=== PATIENT | female | born 1995 | race Caucasian/White ===

== ENCOUNTER 2024-09-13 17:16 | Emergency (ER) | payer MEDICAID, SELFPAY ==
[2024-09-13 17:22] VITALS: BP 104/74; PULSE 88; RESP 20; TEMP 36.9; O2SAT 100; BMI 32.8
--- NOTE | 2024-09-13 17:29 | PD.EDRME ---
Rapid Medical Screening Exam RME Arrival date/time: 09/13/24 17:16 29-year-old female presents the emergency department complains of vaginal bleeding and pelvic pain patient reports being believes she is having a miscarriage Chief Complaint: Vaginal Bleeding Vital signs: Vital Signs Temperature 98.5 F 09/13/24 17:22 Pulse Rate 88 09/13/24 17:22 Respiratory Rate 20 09/13/24 17:22 Blood Pressure 104/74 09/13/24 17:22 Pulse Oximetry (%) 100 09/13/24 17:22 Oxygen Delivery Method Room Air 09/13/24 17:22
[2024-09-13 18:00] LABS: Basophils % (Auto) 1 % (0-2.5); Eosinophils # (Auto) 0.1 Thou/mm3 (0.0-0.5); Eosinophils % (Auto) 2 % (0-10); Hematocrit 37.5 % (36.0-46.0); Hemoglobin 12.5 g/dL (12.0-16.0); Immature Granulocytes % (Auto) 0 % (0-0); Immature Granulocytes Auto 0.02 Thou/mm3 (0.00-0.00); Lymphocytes % (Auto) 25 % (10-50); Mean Corpuscular HGB Conc 33.3 g/dl (31.0-37.0); Mean Corpuscular Hemoglobin 27.5 pg (25.0-35.0); Mean Corpuscular Volume 82 fL (80-100); Monocytes # (Auto) 0.4 Thou/mm3 (0.0-0.8); Monocytes % (Auto) 4 % (0-12); Neutrophils # (Auto) 5.7 Thou/mm3 (1.8-7.7); Neutrophils % (Auto) 69 % (37-80); Nucleated Red Blood Cell % 0 /100 WBC (0); Platelet Count 238 Thou/mm3 (140-440); RDW Standard Deviation 43.6 fL (36.4-46.3); Red Blood Count 4.55 Miln/mm3 (4.00-5.20); White Blood Count 8.2 Thou/mm3 (3.6-11.0)
[2024-09-13 18:22] LABS: Alanine Aminotransferase 24 U/L (10-49); Albumin, Serum 4.9 gm/dL (3.5-5.0); Alkaline Phosphatase 58 U/L (46-116); Anion Gap 8 (7-16); Aspartate Amino Transferase 13 U/L (0-34); BUN/Creatinine Ratio 13 Ratio (12-20); Bilirubin,Total < 0.2 mg/dL (0.3-1.2); Blood Urea Nitrogen 12 mg/dL (9-23); Calcium 9.4 mg/dL (8.3-10.6); Calcium (Corrected) 9.4 mg/dL (8.5-10.1); Carbon Dioxide 26.4 mMol/L (20.0-31.0); Chloride 104 mMol/L (98-107); Creatinine (Component) 0.9 mg/dL (0.6-1.3); Estimated Creatinine Clearance 108.3 mL/min (>60); Globulin 2.5 gm/dL (2.3-3.5); Glucose 99 mg/dL (74-106); Osmolality,Calculated 275 (275-295); Sodium 138 mMol/L (136-145); Total Protein 7.4 gm/dL (5.7-8.2); eGFR > 60 See Note
--- NOTE | 2024-09-13 18:28 | XR_ITS ---
Examination: OB Transvaginal ultrasound of the pelvis, complete Technique: Transvaginal sonographic images pelvis performed using vuong scale imaging Exam date and time: September 13, 2024 1830 hrs. Indications: Onset vaginal bleeding today Findings: Uterus 8.5 x 5.5 x 6.2 cm retroverted Intrauterine gestational sac 1.7 cm correspondences 6 weeks 4 days gestational age No pole No cardiac activity Right ovary 2.5 x 2.1 x 2.0 cm arterial flow Left ovary obscured by bowel gas Impression: Intrauterine gestational sac corresponding to 6 weeks 4 days gestational age No pole, no cardiac activity Recommend short-term follow-up transvaginal pelvic sonography to exclude embryonic demise.
[2024-09-13 19:00] LABS: Beta HCG,Quantitative 15426 mIU/mL (<5.0)
--- NOTE | 2024-09-13 19:35 | EDNOTE_ITS ---
ED General RME/HPI General Chief complaint: Vaginal Bleeding Stated complaint: 8 weeks OB, , vaginal bleeding Time Seen by Provider: 09/13/24 19:25 Arrival date/time: 09/13/24 17:16 CC vaginal bleeding HPI ongoing for the past 2 days. The patient is a G4, P2 at estimated 8 weeks. Patient denies fever chills nausea vomiting back pain shortness of breath difficulty breathing. RME / HPI RME / HPI narrative: 09/13/24 17:16 29-year-old female presents the emergency department complains of vaginal bleeding and pelvic pain patient reports being believes she is having a miscarriage Related Data Previous Rx's ?Medication ?Instructions ?Recorded ibuprofen 600 mg tablet 600 mg PO Q6HR PRN PAIN #30 tabs 11/26/15 Allergies Allergy/AdvReac Type Severity Reaction Status Date / Time No Known Allergies Allergy Verified 03/09/22 15:40 Review of Systems Review of Systems Narrative Review of Systems: GEN: No fever, no chills, no weight loss EYES: No discharge, no visual changes, no pain HEENT: No ear pain, no congestion, no sore throat PULM: No shortness of breath, no cough, no congestion CV: No chest pain, no dyspnea on exertion, no palpitations GI: No nausea, no vomiting, no diarrhea, no pain, no constipation : No frequency, no urgency, no dysuria MUSC/SKEL: No joint pain, no back pain SKIN: No rash PSYCH: No hallucinations, no depression HEME/LYMPH: No easy bleeding or bruising tendencies NEURO: No weakness, no headache Past Medical History Past Medical History CARDIAC: Negative Congestive Heart Failure RESPIRATORY: Negative Chronic Obstructive Pulmonary Disease (COPD) GENITOURINARY: Negative Renal Disease ENDOCRINE: Negative Diabetes Mellitus Type 1 or Diabetes Mellitus Type 2 Social History SMOKING STATUS: Former smoker ED Exam Narrative Physical exam: [General: Obese not in any acute distress Head normocephalic HEENT: Within acceptable limits Neck is supple nontender Chest equal chest rise nontender to palpation Respiratory: Clear to auscultation no wheezes crackles or rubs CV: Rate rhythm is regular no murmurs rubs or clicks Abdomen is distended secondary to body habitus soft nontender no masses positive bowel sounds all 4 quadrants Back: No CVA tenderness no spinous process tenderness from cervical spine thoracic and lumbar spine Skin: Intact no petechiae rash induration ulceration or crepitus Extremities: Moving all extremity against resistance cap refill less than 2 seconds neurosensory intact Neuro: Awake alert oriented x3 Glascow coma 15 no focal deficits] Course Quality Measures none Orders Category Date Time Status US OB transvaginal Stat Exams 09/13/24 18:28 Completed ABO/RH Type Stat Lab 09/13/24 17:43 Completed Beta HCG,Quantitative Stat Lab 09/13/24 17:43 Completed CBC Stat Lab 09/13/24 17:43 Completed Comprehensive Metabolic Panel Stat Lab 09/13/24 17:43 Completed Vital Signs Vital signs: Vital Signs Temperature 98.5 F 09/13/24 17:22 Pulse Rate 88 09/13/24 17:22 Respiratory Rate 20 09/13/24 17:22 Blood Pressure 104/74 09/13/24 17:22 Pulse Oximetry (%) 100 09/13/24 17:22 Oxygen Delivery Method Room Air 09/13/24 17:22 [facility] Patient data External records reviewed:: [facility] previous records Clinical information provided by:: patient Social determinants that could affect healthcare access:: none Patient has the following chronic illnesses:: None How is presenting disease/condition affected by chronic disease/condition?: u neffected by Evaluation data The following diagnostics were reviewed and interpreted by me:: lab results and radiology exam(s) Lab and/or radiology exams considered but not ordered:: CBC shows no acute leukocytosis anemia thrombocytopenia CMP shows no acute electrolyte imbalance renal impairment transaminitis or T. bili elevation Urine is negative other than RBC is Ultrasound shows a of 6 weeks and 3 days with no heart tones. Interpretation Summary: Threatened miscarriage Medications Medications considered but not ordered:: None Medication administrations:: None Consultations Consultation(s) initiated? (list below): No Diagnosis Differential Diagnosis ED Complaint MDM: First trimester vaginal bleeding threatened miscarriage ectopic Most likely diagnosis given after review of the tests above:: Threatened miscarriage Admission Indicated Admission indicated?: not indicated Explain why admission is indicated or not indicated:: Stable for discharge Admission Request Was there a request for admission?: No Disposition Plan Disposition Plan: Discharge Discharge Attestation Discharge Attestation: The patient and all family members were given an opportunity to ask questions and understood the discharge instructions. Discharge instructions specifically effects, indications for sooner follow up or return to the emergency department, and the expected course of current diagnosis. Patient condition: Stable Medical Decision Making Differential Diagnosis Differential Diagnosis: First trimester vaginal bleeding threatened miscarriage ectopic Lab Data 09/13/24 17:43 09/13/24 17:43 Labs: Lab Results 09/13/24 Range/Units 17:43 WBC 8.2 (3.6-11.0) Thou/mm3 RBC 4.55 (4.00-5.20) Miln/mm3 Hgb 12.5 (12.0-16.0) g/dL Hct 37.5 (36.0-46.0) % MCV 82 (80-100) fL MCH 27.5 (25.0-35.0) pg MCHC 33.3 (31.0-37.0) g/dl RDW Std Deviation 43.6 (36.4-46.3) fL Plt Count 238 (140-440) Thou/mm3 Neut % (Auto) 69 (37-80) % Lymph % (Auto) 25 (10-50) % [place] % (Auto) 4 (0-12) % Eos % (Auto) 2 (0-10) % Baso % (Auto) 1 (0-2.5) % Neut # (Auto) 5.7 (1.8-7.7) Thou/mm3 Lymph # (Auto) 2.0 (1.0-4.8) Thou/mm3 [place] # (Auto) 0.4 (0.0-0.8) Thou/mm3 Eos # (Auto) 0.1 (0.0-0.5) Thou/mm3 Baso # (Auto) 0.0 (0.0-0.2) Thou/mm3 Immature Gran # (Auto) 0.02 H (0.00-0.00) Thou/mm3 Absolute Nucleated RBC 0.00 (0.00-0.00) Thou/mm3 Immature Gran % 0 (0-0) % Nucleated RBC % 0 (0) /100 WBC Sodium 138 (136-145) mMol/L Potassium 4.0 (3.4-5.1) mMol/L Chloride 104 (98-107) mMol/L Carbon Dioxide 26.4 (20.0-31.0) mMol/L Anion Gap 8 (7-16) BUN 12 (9-23) mg/dL Creatinine 0.9 (0.6-1.3) mg/dL Estim Creat Clear Calc 108.3 (>60) mL/min eGFR > 60 (60 - ) See Note BUN/Creatinine Ratio 13 (12-20) Ratio Glucose 99 (74-106) mg/dL Calculated Osmolality 275 (275-295) Calcium 9.4 (8.3-10.6) mg/dL Corrected Calcium 9.4 (8.5-10.1) mg/dL Total Bilirubin < 0.2 L (0.3-1.2) mg/dL AST 13 (0-34) U/L ALT 24 (10-49) U/L Alkaline Phosphatase 58 (46-116) U/L Total Protein 7.4 (5.7-8.2) gm/dL Albumin 4.9 (3.5-5.0) gm/dL Globulin 2.5 (2.3-3.5) gm/dL Albumin/Globulin Ratio 2.0 (1.2-2.2) Beta HCG, Quant 85800 (<5.0) mIU/mL Blood Type B Positive Blood Bank Wristband ID Yes Discharge Plan Plan Patient Disposition: HOME (Self Care) Patient condition on transfer: Stable Prescriptions/Referrals Prescriptions/Med Rec: No Action ibuprofen 600 MG tablet 600 mg PO Q6HR PRN (Reason: PAIN) Qty: 30 0RF Referrals: No Primary/Family,Physician [Primary Care Provider] - In 1 week Dennis Sanchez MD [Physician] - In 1 week Problem List Clinical Impression: Miscarriage, threatened, early Patient/Caregiver Discharge Instructions Education Materials: ED Possible Miscarriage ... Print Language: Comoran Stand Alone Forms: Jazmyne Award Info., Patient Portal Info Letter, Work/School Release PA/ELECTRIC LOCOMOTIVE CRANE OPERATOR Supervising Physician PA/ELECTRIC LOCOMOTIVE CRANE OPERATOR Supervising Physician: Brad Wiley ENP
== END 2024-09-13 19:52 | disposition home or self-care (01) ==
PROVIDERS: Nurse Practitioner Primary Care; Emergency Provider Emergency Medicine; Referring Provider Emergency Medicine
DX: O20.0 Threatened abortion (principal); Z3A.01 Less than 8 weeks gestation of pregnancy
CPT/HCPCS: 36415; 76817; 80053; 84702; 85025; 86900; 86901; 99284

== ENCOUNTER 2024-09-15 22:08 | Day surgery (SDC) | payer MEDICAID, SELFPAY ==
[2024-09-15 22:09] VITALS: BMI 32.8
[2024-09-15 22:32] VITALS: BP 110/86; PULSE 101; RESP 19; TEMP 36.8; O2SAT 100
[2024-09-15 22:41] VITALS: BP 111/78; PULSE 107; RESP 23; O2SAT 100
[2024-09-15 23:00] LABS: Basophils % (Auto) 0 % (0-2.5); Eosinophils # (Auto) 0.2 Thou/mm3 (0.0-0.5); Eosinophils % (Auto) 1 % (0-10); Hematocrit 33.8 % (36.0-46.0); Hemoglobin 11.3 g/dL (12.0-16.0); Immature Granulocytes % (Auto) 0 % (0-0); Immature Granulocytes Auto 0.03 Thou/mm3 (0.00-0.00); Lymphocytes # (Auto) 2.5 Thou/mm3 (1.0-4.8); Lymphocytes % (Auto) 22 % (10-50); Mean Corpuscular HGB Conc 33.4 g/dl (31.0-37.0); Mean Corpuscular Hemoglobin 27.2 pg (25.0-35.0); Mean Corpuscular Volume 81 fL (80-100); Monocytes # (Auto) 0.6 Thou/mm3 (0.0-0.8); Monocytes % (Auto) 5 % (0-12); Neutrophils # (Auto) 7.8 Thou/mm3 (1.8-7.7); Neutrophils % (Auto) 71 % (37-80); Nucleated Red Blood Cell % 0 /100 WBC (0); Platelet Count 244 Thou/mm3 (140-440); RDW Standard Deviation 42.7 fL (36.4-46.3); Red Blood Count 4.16 Miln/mm3 (4.00-5.20); White Blood Count 11.1 Thou/mm3 (3.6-11.0)
[2024-09-15 23:01] VITALS: BP 84/71; PULSE 95; RESP 16; O2SAT 100
--- NOTE | 2024-09-15 23:02 | EDNOTE_ITS ---
ED OB Contraction Preg RMI/HPI General Chief complaint: Vaginal Bleeding Stated complaint: vaginal bleeding Time Seen by Provider: 09/15/24 23:01 Arrival date/time: 09/15/24 22:08 Mode of arrival: ambulatory Limitations: no limitations RME / HPI RME / HPI Narrative: Dr. Trujillo's Main ED Evaluation: 29-year-old female G4 with 1 living , reported last menstrual period approximately unknown, however the patient was seen in the emergency department on September 13 and was told that she had a 6-week IUP, presenting to the emergency department with vaginal bleeding. The patient states that she has been spotting since September 13 and it is gotten increasing today at 4 PM requiring her to change her pads 2-3 times. She changed her pads since arriving to the emergency department 4-5 times. Currently has some abdominal cramping and think she is miscarrying No back pain No fever No vomiting No dizziness or syncope No urinary symptoms Related Data Previous Rx's ?Medication ?Instructions ?Recorded ibuprofen 600 mg tablet 600 mg PO Q6HR PRN PAIN #30 tabs 11/25/ hydrocodone 5 mg-acetaminophen 325 1 tab PO Q6H PRN pain #14 tabs 09/16/ mg tablet Allergies Allergy/AdvReac Type Severity Reaction Status Date / Time No Known Allergies Allergy Verified 03/09/22 15:40 Review of Systems Review of Systems Systems Reviewed: All systems reviewed, normal except as documented Past Medical History Past Medical History CARDIAC: Negative Congestive Heart Failure RESPIRATORY: Negative Chronic Obstructive Pulmonary Disease (COPD) GENITOURINARY: Negative Renal Disease ENDOCRINE: Negative Diabetes Mellitus Type 1 or Diabetes Mellitus Type 2 Social History SMOKING STATUS: Current some day smoker ED Exam Narrative Physical exam: Pelvic exam: Filament Tester present. There is lots of blood in the vaginal vault, it is pooling. No CMP. Os is open. General Limitations: Present no limitations General appearance: Present alert, in no apparent distress and other (awake, talking in full sentences) Head Head exam: Present atraumatic Eye Eye exam: Present normal appearance, PERRL and EOMI ENT ENT exam: Present normal exam, normal oropharynx and mucous membranes moist Neck Neck exam: Present normal inspection, full ROM and trachea midline Chest Chest inspection: Present normal inspection and symmetric chest wall rise Respiratory Respiratory exam: Present normal lung sounds bilaterally Cardiovascular Cardiovascular exam: Present normal rhythm, tachycardia and normal heart sounds Abdominal Exam Abdominal exam: Present soft and normal bowel sounds Extremities Exam Extremities exam: Present normal inspection and full ROM Back Exam Back exam: Present normal inspection and full ROM Neurological Exam Neurological exam: Present alert, oriented X3 and CN II-XII intact Psychiatric Psychiatric exam: Present normal affect and normal mood Skin Skin exam: Present warm, dry, intact and normal color; Absent pallor Course Quality Measures none Orders Category Date Time Status Admit to Inpatient Status Routine Admission 09/16/24 05:01 Active Patient Condition Routine Admission 09/16/24 Ordered COVID-19 Screening Questionnaire NOW Care 09/16/24 05:01 Active COVID-19 Screening Questionnaire NOW Care 09/16/24 05:02 Active Consent [Obtain Written Consent For:] .NOW Care 09/16/24 05:02 Active DC Home When Criteria Met . Care 09/16/24 06:18 Active Decision to Admit X1 Care 09/16/24 04:59 Active Decision to Admit X1 Care 09/16/24 05:02 Active Pelvic Exam X1 Care 09/15/24 23:02 Active Discharge Routine Discharge 09/16/24 06:41 Active US OB <= 14 weeks fetus Stat Exams 09/16/24 00:00 Taken Beta HCG,Quantitative Stat Lab 09/15/24 22:35 Completed CBC Stat Lab 09/15/24 22:35 Completed CBC Stat Lab 09/16/24 02:48 Completed Comprehensive Metabolic Panel Stat Lab 09/15/24 22:35 Completed PT [Prothrombin Time with INR] Stat Lab 09/16/24 02:48 Completed Red Blood Cells Stat Lab 09/16/24 04:46 Completed Type and Screen Stat Lab 09/15/24 22:35 Completed Acetaminophen Ivpb [Ofirmev Inj] Med 09/16/24 06:19 Active 1,000 mg in 100 ml IV Q6HR Dexamethasone Inj [Decadron Inj] Med 09/16/24 06:17 Discontinued 10 mg .ROUTE .STK-MED ONE Ketorolac Inj [Toradol Inj] Med 09/16/24 06:17 Discontinued 30 mg .ROUTE .STK-MED ONE Methylergonovine Inj [Methergine Inj] Med 09/16/24 06:27 Discontinued 0.2 mg .ROUTE .STK-MED ONE Midazolam Inj [Versed Inj] Med 09/16/24 06:04 Discontinued 2 mg .ROUTE .STK-MED ONE Morphine Inj Med 09/16/24 06:18 Active 3 mg IV Q5M PRN Ondansetron Inj [Zofran Inj] Med 09/16/24 06:17 Discontinued 4 mg .ROUTE .STK-MED ONE Ondansetron Inj [Zofran Inj] Med 09/15/24 23:07 Discontinued 4 mg IV X1 ONE Ondansetron Inj [Zofran Inj] Med 09/15/24 23:28 Discontinued 4 mg IV X1 ONE Ondansetron Inj [Zofran Inj] Med 09/16/24 06:18 Discontinued 4 mg IV X1 ONE Propofol Inj [Diprivan Inj] Med 09/16/24 06:03 Discontinued 200 mg IV .STK-MED ONE Sodium Chloride 0.9% 1000 ml [Ns] 1,000 ml Med 09/15/24 23:01 Discontinued IV 999 mls/hr Sodium Chloride 0.9% 1000 ml [Ns] 1,000 ml Med 09/16/24 02:01 Discontinued IV 999 mls/hr Tranexamic Acid 1,000 mg Ivpb [Tranexamic Acid Ivpb] Med 09/16/24 06:27 Discontinued 1,000 mg in 100 ml IV .STK-MED ceFAZolin [Ancef] Med 09/16/24 06:17 Discontinued 2 gm .ROUTE .STK-MED ONE fentaNYL INJ [Sublimaze Inj] Med 09/16/24 06:04 Discontinued 100 mcg .ROUTE .STK-MED ONE fentaNYL INJ [Sublimaze Inj] Med 09/16/24 06:18 Active 25 mcg IV Q5M PRN Code Status Routine Oth 09/16/24 05:02 Ordered Oxygen Delivery PRN RT 09/16/24 06:18 Active Vital Signs Vital signs: Vital Signs Temperature 98.2 F 09/15/24 22:32 Pulse Rate 101 H 09/15/24 22:32 Respiratory Rate 19 09/15/24 22:32 Blood Pressure 110/86 H 09/15/24 22:32 Pulse Oximetry (%) 100 09/15/24 22:32 Oxygen Delivery Method Room Air 09/15/24 22:32 Vaginal Bleeding MDM Narrative MDM Narrative: Differential diagnosis includes UTI, miscarriage, irregular vaginal bleeding, ectopic , anemia At this time the patient is hemodynamically stable with a heart rate of 101. Will order ultrasound, labs to include ABO, type and screen and CBC are ordered and pending. 0202: Patient's HR went up to 120 and felt dizzy when she stood up. BP is 84 sys tolic. Patient has orthostatic hypotension. Additional fluids added. 0450: Discussed results with the patient. States she will likely need a D&C. Will consult with OBGYN. Patient data External records reviewed:: [facility] previous records (Per chart review, patient was seen here on 09/13/24 for an early threatened miscarriage; Reviewed US from 09/13/24.) Clinical information provided by:: patient Social determinants that could affect healthcare access:: none Patient has the following chronic illnesses:: none How is presenting disease/condition affected by chronic disease/condition?: no chronic disease Evaluation data The following diagnostics were reviewed and interpreted by me:: lab results and radiology exam(s) Lab and/or radiology exams considered but not ordered:: none Interpretation Summary: WBC count is slightly elevated at 11.1, Initial HnH is 11.3/33.8, CMP is chandan l, HCG is 9022 (lower compared to 09/13/24 when it was 29143), PT and INR are normal, according to my interpretation. Repeat HnH dropped and is now 8.1/24.7. Blood transfusion ordered. Telerad Preliminary Report Draft Patient: VIJAYA GARNER [facility]. Record#: [id number] Birthdate: 1995 Age/Sex: 29 / F Location: [facility] Attending Dr: Ordering Physician: Date of Service: Procedure(s): Accession Number(s): cc: ~ Pelvic ultrasound (transabdominal) with Doppler. September 16, 2024 at 0016 hours Clinical history: Approximately 6 to 8 weeks, possible IUP with vag. LMP 07/01/2024.HCG 9022. Findings: The uterus is normal in size measuring 10.4 x 4.6 x 6.2 cm. A small amount of fluid is seen in the cervix. The endometrium is thickened and measures 0.3 cm. No intrauterine gestational sac is seen at this time. The right ovary measures 3.5 x 3.1 x 3.1 cm. The left ovary measures 2.8 x 2 x 2.5 cm. Both ovaries demonstrate color flow and spectral waveforms on Doppler evaluation. No adnexal mass is demonstrated. There is no free fluid. Impression: No evidence of intrauterine gestation at this time. Possibilities include very early intrauterine , recent or occult ectopic gestation. Recommend correlation with serum beta hCG and follow up. Report Electronically Signed By: Tan Tellez 09/16/2024 1:56:44 AM [EST] Medications / Prescriptions Medications or Prescriptions considered but not ordered:: none Medication administrations:: Medication Administration History Fentanyl Citrate (Fentanyl Cit Inj 50 Mcg/Ml Amp 2ml) 25 mcg IV Q5M PRN PRN Reason: PAIN SCALE 1-3 (mild Stop: 09/16/24 08:18 Acetaminophen (Ofirmev Inj) 1,000 mg in 100 mls @ 250 mls/hr IV Q6HR NILO Stop: 09/17/24 00:23 Morphine Sulfate (Morphine Sulf Inj 10 Mg/Ml Vial) 3 mg IV Q5M PRN PRN Reason: PAIN SCALE 4-6 (Moderate Stop: 09/16/24 08:18 Discontinued Medications Cefazolin Sodium (Cefazolin Inj 1 Gm Vial) Confirm Administered Dose 2 gm .ROUTE .STK-MED ONE Stop: 09/16/24 06:18 Dexamethasone Sodium Phosphate (Dexamethasone Sod Phos Inj 10 Mg/Ml Vial) Confirm Administered Dose 10 mg .ROUTE .STK-MED ONE Stop: 09/16/24 06:18 Fentanyl Citrate (Fentanyl Cit Inj 50 Mcg/Ml Amp 2ml) Confirm Administered Dose 100 mcg .ROUTE .STK-MED ONE Stop: 09/16/24 06:05 Sodium Chloride (Ns) 1,000 mls @ 999 mls/hr IV .Q1H1M ONE Stop: 09/16/24 00:01 Last Infusion: 09/16/24 00:03 Dose: Infused Documented By: Admin: 09/15/24 23:17 Dose: 999 mls/hr Documented By: WENDY Sodium Chloride (Ns) 1,000 mls @ 999 mls/hr IV .Q1H1M ONE Stop: 09/16/24 03:01 Last Infusion: 09/16/24 03:04 Dose: Infused Documented By: Admin: 09/16/24 02:10 Dose: 999 mls/hr Documented By: WENDY Tranexamic Acid (Tranexamic Acid Ivpb) Confirm Administered Dose 1,000 mg in 100 mls @ ud IV .STK-MED ONE Stop: 09/16/24 06:28 Ketorolac Tromethamine (Ketorolac Inj 30 Mg/Ml Vial) Confirm Administered Dose 30 mg .ROUTE .STK-MED ONE Stop: 09/16/24 06:18 Methylergonovine Maleate (Methylergonovine Inj 0.2 Mg/Ml Vial) Confirm Administered Dose 0.2 mg .ROUTE .STK-MED ONE Stop: 09/16/24 06:28 Midazolam HCl (Midazolam Inj 1 Mg/Ml Vial 2 Ml) Confirm Administered Dose 2 mg .ROUTE .STK-MED ONE Stop: 09/16/24 06:05 Ondansetron HCl (Ondansetron Inj 2 Mg/Ml Inj 2 Ml) 4 mg IV X1 ONE; Protocol Stop: 09/15/24 23:08 Last Admin: 09/15/24 23:33 Dose: Not Given Documented By: WENDY Non-Admin Reason: Other, see note Ondansetron HCl (Ondansetron Inj 2 Mg/Ml Inj 2 Ml) 4 mg IV X1 ONE; Protocol Stop: 09/15/24 23:29 Last Admin: 09/15/24 23:32 Dose: 4 mg Documented By: WENDY Ondansetron HCl (Ondansetron Inj 2 Mg/Ml Inj 2 Ml) 4 mg IV X1 ONE Stop: 09/16/24 06:19 Ondansetron HCl (Ondansetron Inj 2 Mg/Ml Inj 2 Ml) Confirm Administered Dose 4 mg .ROUTE .STK-MED ONE Stop: 09/16/24 06:18 Propofol (Propofol Inj 10 Mg/Ml Vial 20 Ml) Confirm Administered Dose 200 mg IV .STK-MED ONE Stop: 09/16/24 06:04 see above Consultations Consultation(s) initiated? (list below): Yes Consultation #1 (Physician, Specialty, Details): Discussed case with [Dr. Leonard] from [CHARGING CRANE OPERATOR] regarding [consultation]. Discussed patients ED course, exam findings, labs, and radiology results. States he will take the patient to the OR for D&C. Requests to give 2U of blood and prepare the OR. Time: 04:55 Diagnosis Vaginal Bleeding Differential Diagnosis: other (UTI, miscarriage, irregular vaginal bleeding, ectopic , anemia) Most likely diagnosis given after review of the tests above:: see below Admission Indicated Admission indicated?: indicated Admission Request Was there a request for admission?: Yes Admission Attestation Admission request attestation: Discussed case with from OB service regarding admission. Discussed patients ED course, exam findings, labs, and radiology results. The OB [agrees to accept the patient for admission. Disposition Plan Disposition Plan: Admit Critical Care Time Critical Care Time Critical Care Time: Yes Total Critical Care Time (min.): 50 Attestation: The high probability of sudden, clinically significant deterioration in the patient?s condition required the highest level of my preparedness to intervene urgently. The services I provided to this patient were to treat and/or prevent clinically significant deterioration. Services included the following: chart data review, reviewing nursing notes and/or old charts, documentation time, business analyst consultant collaboration regarding findings and treatment options, medication orders and management, direct patient care, vital sign assessments and ordering, interpreting and reviewing diagnostic studies and lab tests. Aggregate critical care time includes only time during which I was engaged in work directly related to the patient?s care, as described above, whether at bedside or elsewhere in the Emergency Department. It did not include time spent performing other reported procedures or the services of residents, students, nurses or physician assistants. Discharge Plan Plan Patient Disposition: Other Care w/in Hosp ([facility]) Patient condition on transfer: Stable and Benefits outweigh risks Problem List Clinical Impression: Vaginal bleeding, Acute hypotension, Anemia, Incomplete miscarriage Patient/Caregiver Discharge Instructions Discharge Activity: activity as tolerated Other Activity Instructions:: Follow up office 1 week with Primary CHARGING CRANE OPERATOR or Dr. Leonard's office.
[2024-09-15] MEDS: SODIUM CHLORIDE 0.9% 1000 ML 1,000 ML 999 ML IV (23:17)
[2024-09-15 23:18] LABS: Alanine Aminotransferase 24 U/L (10-49); Albumin, Serum 4.3 gm/dL (3.5-5.0); Albumin/Globulin Ratio 1.9 (1.2-2.2); Alkaline Phosphatase 57 U/L (46-116); Anion Gap 8 (7-16); Aspartate Amino Transferase 18 U/L (0-34); BUN/Creatinine Ratio 20 Ratio (12-20); Bilirubin,Total < 0.2 mg/dL (0.3-1.2); Blood Urea Nitrogen 14 mg/dL (9-23); Calcium 9.1 mg/dL (8.3-10.6); Calcium (Corrected) 9.1 mg/dL (8.5-10.1); Carbon Dioxide 22.4 mMol/L (20.0-31.0); Chloride 108 mMol/L (98-107); Creatinine (Component) 0.7 mg/dL (0.6-1.3); Estimated Creatinine Clearance 139.3 mL/min (>60); Globulin 2.3 gm/dL (2.3-3.5); Glucose 113 mg/dL (74-106); Osmolality,Calculated 277 (275-295); Potassium 3.7 mMol/L (3.4-5.1); Sodium 138 mMol/L (136-145); Total Protein 6.6 gm/dL (5.7-8.2); eGFR > 60 See Note
[2024-09-15 23:30] VITALS: BP 83/59; PULSE 91; RESP 14; O2SAT 100
[2024-09-15 23:32] VITALS: BP 84/71; PULSE 90; RESP 15; TEMP 36.8; O2SAT 100
[2024-09-15] MEDS: ONDANSETRON INJ 2 MG/ML INJ 2 ML 4 MG IV (23:32)
[2024-09-15 23:40] LABS: Beta HCG,Quantitative 9022 mIU/mL (<5.0)
[2024-09-16] VITALS (22 sets, daily range): BP systolic 68–111; BP diastolic 44–72; PULSE 70–124; RESP 8–24; TEMP 36.3–36.9; O2SAT 95–100
--- NOTE | 2024-09-16 | XR_ITS ---
Examination: Complete OB ultrasound, less than 14 weeks, transabdominal Date and time of exam: September 16, 2024 0016 hours INDICATIONS: Vaginal bleeding beginning 2 days ago Technique: Obstetrical ultrasound images less than 14 weeks performed via transabdominal imaging Findings: Uterus 10.4 x 4.6 x 6.2 cm No intrauterine gestation Mild fluid in cervix Endometrial stripe 0.3 cm Right ovary 3.5 x 3.1 x 3.1 cm arterial flow Left ovary 2.8 x 2.0 x 2.5 cm arterial flow No fluid in the cul-de-sac IMPRESSION: No uterine mass or intrauterine gestation Negative for ovarian torsion
--- NOTE | 2024-09-16 01:57 | PRELIM_ITS ---
Pelvic ultrasound (transabdominal) with Doppler. September 16, 2024 at 0016 hours Clinical history: Anthony roximately 6 to 8 weeks, possible IUP with vag. LMP 07/01/2024.HCG 9022. Findings:The uterus is chandan l in size measuring 10.4 x 4.6 x 6.2 cm. A small amount of fluid is seen in the cervix. The endometri um is thickened and measures 0.3 cm. No intrauterine gestational sac is seen at this time. The right ovary measures 3.5 x 3.1 x 3.1 cm. The left ovary measures 2.8 x 2 x 2.5 cm. Both ovaries demonstrate color flow and spectral waveforms on Doppler evaluation. No adnexal mass is demonstrated.There is no free fluid.Impression:No evidence of intrauterine gestation at this time. Possibilities include very early intrauterine , recent or occult ectopic gestation. Recommend correlation wit h serum beta hCG and follow up. Report Electronically Signed By: Tan Tellez 09/16/2024 1:56:44 AM [ EST]
[2024-09-16] MEDS: SODIUM CHLORIDE 0.9% 1000 ML 1,000 ML 999 ML IV (02:10)
[2024-09-16 03:05] LABS: Basophils % (Auto) 0 % (0-2.5); Eosinophils # (Auto) 0.1 Thou/mm3 (0.0-0.5); Eosinophils % (Auto) 1 % (0-10); Hematocrit 24.7 % (36.0-46.0); Immature Granulocytes % (Auto) 0 % (0-0); Immature Granulocytes Auto 0.03 Thou/mm3 (0.00-0.00); Lymphocytes # (Auto) 2.2 Thou/mm3 (1.0-4.8); Lymphocytes % (Auto) 28 % (10-50); Mean Corpuscular HGB Conc 32.8 g/dl (31.0-37.0); Mean Corpuscular Hemoglobin 27.2 pg (25.0-35.0); Mean Corpuscular Volume 83 fL (80-100); Monocytes # (Auto) 0.4 Thou/mm3 (0.0-0.8); Monocytes % (Auto) 5 % (0-12); Neutrophils # (Auto) 5.2 Thou/mm3 (1.8-7.7); Neutrophils % (Auto) 65 % (37-80); Nucleated Red Blood Cell % 0 /100 WBC (0); Platelet Count 177 Thou/mm3 (140-440); RDW Standard Deviation 43.9 fL (36.4-46.3); Red Blood Count 2.98 Miln/mm3 (4.00-5.20)
[2024-09-16 03:06] LABS: Hemoglobin 8.1 g/dL (12.0-16.0)
[2024-09-16 03:14] LABS: INR 1.1 (0.9-1.3); Prothrombin Time 11.9 Seconds (9.0-12.2)
--- NOTE | 2024-09-16 05:42 | ESHP_ITS ---
Documentation for date of: 09/16/24 [employer] - HPI History of Present Illness History of present illness: Ms. GARNER is a 29 year old female who presented to the emergency room complaining of heavy vaginal bleeding. Her hemoglobin went from 11.3-8.1 during her observation in the emergency room. She had a pelvic ultrasound on September 13 showing an intrauterine at 6 weeks and 4 days with no cardiac activity. Her current ultrasound shows no intrauterine gestational sac. Her quantitative beta-hCG went from 15,426 on September 13 down to 9022 current lab. Review of Systems Review of Systems Narrative Review of Systems: Denies any chest pain palpitations cough fever shortness of breath or lower extremity pain Allergic/Immunologic Comments: No known drug allergies Past Medical History Past Medical History GENITOURINARY: Positive Genitourinary Disorders Surgical History OTHER SURGICAL HX: D&C for miscarriage 2021 Meds Home Medications and Allergies Allergies Allergy/AdvReac Type Severity Reaction Status Date / Time No Known Allergies Allergy Verified 03/09/22 15:40 Exam - [employer] Vital Signs Temp Pulse Resp BP Pulse Ox O2 Del Method 98.1 F 74 17 89/61 L 100 Room Air 09/16/24 05:37 09/16/24 05:37 09/16/24 05:37 09/16/24 05:37 09/16/24 05:37 09/16/24 03:46 Routine HEENT Exam Comments: Oropharynx and sclerae are clear Routine Respiratory Exam Comments: Clear to auscultation bilaterally Routine Cardiovascular Exam Comments: Regular rate and rhythm Routine Abdominal Exam Comments: Nontender nondistended no guarding rebound or rigidity , soft. Additional findings Additional findings: Currently undergoing rapid blood transfusion of 2 units of packed red blood cells [employer] - Results Labs 09/16/24 02:48 09/15/24 22:35 Labs: Short CBC 09/15/24 09/16/24 Range/Units 22:35 02:48 WBC 11.1 H 8.0 (3.6-11.0) Thou/mm3 Hgb 11.3 L 8.1 L D (12.0-16.0) g/dL Hct 33.8 L 24.7 L (36.0-46.0) % Plt Count 244 177 D (140-440) Thou/mm3 BMP 09/15/24 22:35 Sodium 138 Potassium 3.7 Chloride 108 H Carbon Dioxide 22.4 BUN 14 Creatinine 0.7 Glucose 113 H Calcium 9.1 Liver Function 09/15/24 Range/Units 22:35 Total Bilirubin < 0.2 L (0.3-1.2) mg/dL AST 18 (0-34) U/L ALT 24 (10-49) U/L Alkaline Phosphatase 57 (46-116) U/L Albumin 4.3 D (3.5-5.0) gm/dL Impressions Impression: Incomplete at 6 weeks gestation Assessment and Plan Assessment and plan (1) Incomplete miscarriage: Status: Acute Additional Assessment & Plan Additional Plan: Suction dilatation curettage Informed consent was obtained. The patient was made aware of the risk complications alternatives and benefits of the proposed procedure and she agrees. Quality Measures Quality Measures none
--- NOTE | 2024-09-16 05:54 | PC.NURSE ---
REPORT GIVEN TO AVERY CHAPA. ALL QUESTIONS ASKED AND ANSWERED. PATIENT TRANSFERRED TO SURGERY WITH OR STAFF, FAMILY WITH PATIENT. PATIENT REMAINS ON ROOM AIR.
--- NOTE | 2024-09-16 06:35 | SUR.PHASEI ---
0635: [facility] received report from Dr. Espinoza and Deepak RN. oral airway in place. no s/s of pain or discomfort. no s/s or resp. distress or discomfort. no vaginal noted from chelsey-pad.
--- NOTE | 2024-09-16 06:45 | SUR.PHASEI ---
0645: pt able to open eyes and mouth, oral airway was out at this time.
--- NOTE | 2024-09-16 06:55 | SUR.PHASEI ---
0655: pt drink water at this time. tolerated well.
--- NOTE | 2024-09-16 07:05 | SUR.PHASEI ---
0705: pt alert and oriented x3. no s/s of pain or discomfort. no s/s or resp. distress or discomfort. scant amount of vaginal bleeding noted from chelsey-pad.
--- NOTE | 2024-09-16 07:05 | SUR.PHASEII ---
0705: report given to AVERY Bingham.
--- NOTE | 2024-09-16 07:20 | SUR.PHASEII ---
Pt. AAOx3, tolerating sips of water, assessed for vaginal bleeding, small amount of bright red blood on chelsey-pad, no c/o pain or nausea at this time.
--- NOTE | 2024-09-16 07:40 | SUR.PHASEII ---
Pt. meets criteria for discharge, VSS, AAOx3, no c/o pain or nausea at this time, no active bleeding noted, IV discontinued without complications, discharge instructions provided to pt. and pt.'s mother, verbalized understanding. Pt. escorted to vehicle with all of belongings via w/c by staff.
--- NOTE | 2024-09-16 07:44 | ESOP_ITS ---
RE: VIJAYA GARNER : 1995 DATE OF OPERATION: 09/16/2024 PREOPERATIVE DIAGNOSIS: Incomplete at 6 weeks gestation. POSTOPERATIVE DIAGNOSIS: Incomplete at 6 weeks gestation. PROCEDURE PERFORMED: Suction dilatation and curettage. SURGEON: Sixto Leonard DO [employer] WORKER: None. ANESTHESIA: General. ANESTHESIOLOGIST: Dr. Espinoza. ESTIMATED BLOOD LOSS: 25 mL PATHOLOGY: Products of conception. FINDINGS: Moderate amount of products of conception in the endocervical os and small amount in the uterine cavity. Cervix was 1.5 cm dilated. Uterus was 8 weeks' size. DESCRIPTION OF PROCEDURE: After appropriate informed consent was obtained, the patient was made aware of the risks, complications, alternatives, and benefits of the proposed procedure she was taken to the operating room where she underwent induction of general anesthesia. She was placed in the dorsal lithotomy position. She was prepped and draped in the usual sterile fashion. A timeout was performed. The patient underwent an exam under anesthesia, which revealed the above findings. A bivalve speculum was placed in the vagina. A single-tooth tenaculum was used to grasp the anterior lip of the cervix. The products of conception and endocervical os were removed with the ring forceps. Specimens sent to Pathology. The suction curette 12 mm was used to curette the uterine cavity in all four quadrants and additional products of conception were obtained. There was no bleeding at the end of the procedure after receiving Pitocin, Methergine, and TXA. Bovie was used for hemostasis at the site of the tenaculum on the cervix. All instruments were removed from the vagina. She was reversed from general anesthesia in the supine position and transferred to the recovery room in stable condition. I discussed with the patient's family with her mother, the nature of her condition, intraoperative findings, and expectation for recovery. All questions answered. DT: 06:46:19 TT: 07:43:00 Ref: [id number] - TID: [id number]
== END 2024-09-16 07:40 | disposition home or self-care (01) ==
LOC: SERX 09-16 05:00 → S2EX 09-16 05:48
PROVIDERS: Emergency Provider Emergency Medicine; Referring Provider Specialist; Visit Provider Specialist
PROC: (CPT 58120; principal; 2024-09-16 06:00)
DX: O03.4 Incomplete spontaneous abortion without complication (principal); O99.011 Anemia complicating pregnancy, first trimester; O99.331 Smoking (tobacco) complicating pregnancy, first trimester; Z3A.08 8 weeks gestation of pregnancy
CPT/HCPCS: 59812; 36415; 36430; 76801; 80053; 84702; 85025; 85610; 86850; 86900; 86901; 86923; 96361; 96374; 99291; A4217; J0690; J1100; J1885; J2210; J2250; J2405; J2704; J3010; J3490; J7030; P9016